=== PATIENT | female | born 1960 | race Caucasian/White ===

== ENCOUNTER → 2023-06-01 15:07 | Outpatient (REF) | payer OTHER, SELFPAY | LOC: RAD 15:07 | PROVIDERS: ATTENDING PHYSICIAN Physician Assistant Medical | DX: R29.890 Loss of height (principal); M25.551 Pain in right hip; M25.552 Pain in left hip | CPT/HCPCS: 73523; 77080 ==

== ENCOUNTER → 2024-08-03 19:16 | Outpatient (REF) | payer OTHER, SELFPAY | LOC: WDC 19:16 | PROVIDERS: ATTENDING PHYSICIAN Physician Assistant Medical | DX: Z12.31 Encounter for screening mammogram for malignant neoplasm of breast (principal) | CPT/HCPCS: 77063; 77067 ==

== ENCOUNTER → 2025-02-02 07:34 | Outpatient (REF) | payer OTHER, SELFPAY | LOC: PAVMRI 07:34 | PROVIDERS: ATTENDING PHYSICIAN Internal Medicine Gastroenterology; FAMILY PHYSICIAN Physician Assistant Medical | DX: K86.2 Cyst of pancreas (principal) | CPT/HCPCS: 74183; A9575 ==